=== PATIENT | female | born 1990 | race Asian ===

== ENCOUNTER 2018-05-22 19:26 | Emergency (ER) | payer MEDICAID ==
[~2018-05-22] VITALS: Ht 162.6 cm; Wt 50.8 kg
[2018-05-22 19:45] VITALS: Ht 162.6 cm; Wt 50.8 kg
[2018-05-22 21:52] VITALS: BP 112/68
== END 2018-05-22 21:52 | disposition home or self-care (01) ==
LOC: ED 19:26
DX: H92.02 Otalgia, left ear (principal); L98.9 Disorder of the skin and subcutaneous tissue, unspecified; R51 Headache; R42 Dizziness and giddiness